=== PATIENT | female | born 1955 | race Caucasian/White ===

== ENCOUNTER → 2023-07-28 10:35 | Outpatient (REF) | payer MEDICARE, SELFPAY | LOC: RAD 10:35 | PROVIDERS: ATTENDING PHYSICIAN Internal Medicine | DX: M25.559 Pain in unspecified hip (principal); M81.0 Age-related osteoporosis without current pathological fracture | CPT/HCPCS: 72170; 73502 ==

== ENCOUNTER → 2023-08-14 14:10 | Outpatient (REF) | payer MEDICARE, SELFPAY | LOC: RAD 14:10 | PROVIDERS: ATTENDING PHYSICIAN Nurse Practitioner Family; FAMILY PHYSICIAN Internal Medicine | DX: M81.0 Age-related osteoporosis without current pathological fracture (principal) | CPT/HCPCS: 77080 ==

== ENCOUNTER → 2025-01-12 15:08 | Outpatient (REF) | payer MEDICARE, SELFPAY | LOC: HWRAD 15:08 | PROVIDERS: ATTENDING PHYSICIAN Nurse Practitioner Family; FAMILY PHYSICIAN Internal Medicine | DX: R42 Dizziness and giddiness (principal); R51.9 Headache, unspecified | CPT/HCPCS: 70450 ==